=== PATIENT | female | born 1995 | race Native Hawaiian/Other Pacific Islander ===

== ENCOUNTER 2019-07-19 12:45 | Emergency (ER) | payer OTHER ==
[2019-07-19] MEDS ORDERED: Ondansetron 4 MG Tab.DIS PO PRN (13:13)
[2019-07-19] MEDS ORDERED: Ibuprofen 800 MG Tab PO ONE (13:14)
[2019-07-19] MEDS ORDERED: Acetaminophen 500 MG Tab PO ONE (13:14)
--- NOTE | 2019-07-19 13:53 | EDM.PDOC ---
ED HPI GENERAL MEDICAL PROBLEM - General Chief Complaint: Fever Stated Complaint: CHILL,FEVER Time Seen by Provider: 07/19/19 12:55 Source of Information: Reports: Patient, Family History Limitations: Reports: No Limitations - History of Present Illness INITIAL COMMENTS - FREE TEXT/NARRATIVE: Patient presented to the ED because of cough and cold,fever,chills and body malaise for 2 days. She also c/o N/V but no diarrhea. - Related Data Allergies Allergy/AdvReac Type Severity Reaction Status Date / Time No Known Allergies Allergy Verified 07/19/19 13:07 Home Meds: Home Meds Ibuprofen [Motrin] 800 mg PO TID PRN #30 tab 07/19/19 [Rx] hydrOXYzine pamoate [Vistaril] 50 mg PO Q6H PRN #15 cap 07/19/19 [Rx] Past Medical History - Past Health History Medical/Surgical History: Denies Medical/Surgical History Social & Family History - Family History Family Medical History: Noncontributory - Tobacco Use Smoking Status *Q: Current Every Day Smoker Years of Tobacco use: 5 Packs/Tins Daily: 0.5 Used Tobacco, but Quit: No - Recreational Drug Use Recreational Drug Use: No ED ROS GENERAL - Review of Systems Review Of Systems: See Below Constitutional: Reports: No Symptoms HEENT: Reports: Rhinitis Respiratory: Reports: Cough. Denies: Sputum Cardiovascular: Reports: No Symptoms Endocrine: Reports: No Symptoms GI/Abdominal: Reports: Nausea, Vomiting. Denies: Abdominal Pain, Diarrhea : Reports: No Symptoms Musculoskeletal: Reports: No Symptoms, Muscle Pain Skin: Reports: No Symptoms Neurological: Reports: No Symptoms Psychiatric: Reports: No Symptoms ED EXAM, GENERAL - Physical Exam Exam: See Below Exam Limited By: No Limitations General Appearance: Alert, No Apparent Distress Eye Exam: Bilateral Eye: PERRL Ears: Normal External Exam, Normal Canal, Hearing Grossly Normal Nose: Normal Inspection, Normal Mucosa, No Blood, Nasal Tenderness Throat/Mouth: Normal Inspection, Normal Lips, Normal Teeth, Normal Gums Head: Atraumatic, Normocephalic Neck: Normal Inspection, Supple, Non-Tender, Full Range of Motion Respiratory/Chest: No Respiratory Distress, Lungs Clear, Normal Breath Sounds, Chest Non-Tender, Decreased Breath Sounds Cardiovascular: Normal Peripheral Pulses, Regular Rate, Rhythm, No Edema, No Gallop, No JVD, No Murmur, No Rub Back Exam: Normal Inspection, Full Range of Motion Extremities: Normal Inspection, Normal Range of Motion, Non-Tender Neurological: Alert, Oriented, CN II-XII Intact, Normal Cognition, Normal Gait, Normal Reflexes, No Motor/Sensory Deficits Psychiatric: Normal Affect, Normal Mood Skin Exam: Warm Course - Vital Signs Text/Narrative:: influenza A pos zofran ODT 4 mg po x1 ibuprofen 800 mg with tylenol 1000 mg po x1 Last Recorded V/S: Last Vital Signs Temp 37.1 C 07/19/19 13:43 Pulse 106 H 07/19/19 12:55 Resp 20 07/19/19 12:55 BP 104/88 07/19/19 12:55 Pulse Ox 100 07/19/19 12:55 - Orders/Labs/Meds Meds: Medications Discontinued Medications Generic Name Dose Route Start Last Admin Trade Name Freq PRN Reason Stop Dose Admin Acetaminophen 1,000 mg 07/19/19 13:14 07/19/19 13:43 Tylenol Extra Strength PO 07/19/19 13:15 1,000 mg ONETIME ONE Administration Ibuprofen 800 mg 07/19/19 13:14 07/19/19 13:43 Motrin PO 07/19/19 13:15 800 mg ONETIME ONE Administration Ondansetron HCl 4 mg 07/19/19 13:13 07/19/19 13:46 Zofran Odt PO 4 mg ONETIME PRN Administration Nausea Departure - Departure Time of Disposition: 13:50 Disposition: Home, Self-Care 01 Condition: Good Clinical Impression: Influenza A - Discharge Information Prescriptions: hydrOXYzine pamoate [Vistaril] 50 mg PO Q6H PRN #15 cap PRN Reason: nausea/sleep Ibuprofen [Motrin] 800 mg PO TID PRN #30 tab PRN Reason: Pain/Fever Instructions: Influenza, Adult, [id number] Referrals: PCP,None [Primary Care Provider] - Forms: ED Department Discharge Additional Instructions: please read discharge instructions on influenza vistaril 50 mg every 6 hours as needed for nausea and sleep ibuprofen 800 mg with tylenol 1000 mg every 8 hours as needed for pain/fever follow up as needed Sepsis Event Note - Evaluation Sepsis Screening Result: No Definite Risk - Focused Exam Vital Signs: Vital Signs Temp Temp Pulse Resp BP Pulse Ox 07/19/19 13:43 37.1 C 07/19/19 12:55 37.1 C 106 H 20 104/88 100 Date Exam was Performed: 07/19/19 Time Exam was Performed: 15:44
== END 2019-07-19 14:24 | disposition home or self-care (01) ==
LOC: FB.ED 12:45
DX: J10.1 Influenza due to other identified influenza virus with other respiratory manifestations (principal); F17.210 Nicotine dependence, cigarettes, uncomplicated
CPT/HCPCS: 87804; 87804-59; 99283; A9270-GY

== ENCOUNTER 2019-07-23 21:14 | Emergency (ER) | payer OTHER ==
[2019-07-23] MEDS ORDERED: Codeine/guaiFENesin 100mg-10 MG/5 ML Soln 118 ML Bottle PO ONE (21:15)
--- NOTE | 2019-07-23 21:32 | EDM.PDOC ---
ED HPI GENERAL MEDICAL PROBLEM - General Chief Complaint: ENT Problem Stated Complaint: FEVER Time Seen by Provider: 07/23/19 21:20 Source of Information: Reports: Patient, Old Records History Limitations: Reports: No Limitations - History of Present Illness INITIAL COMMENTS - FREE TEXT/NARRATIVE: 24 yo female was here a few days ago and was dx'd with influenza A. She returns tonight with R ear pain with drainage. Still has some nausea, is not out of her Zofran. Still has a dry cough. Still running a fever at times. Onset: Today (of ear pain), Gradual Onset Date: 07/23/19 Duration: Day(s): (1, ear pain), Constant Location: Reports: Face (R ear) Quality: Reports: Ache Severity: Moderate Improves with: Reports: None Worsens with: Reports: None Context: Reports: Other (See HPI) Associated Symptoms: Reports: Cough, Fever/Chills, Malaise, Nausea/Vomiting. 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 (see below) (none) - Related Data Allergies Allergy/AdvReac Type Severity Reaction Status Date / Time No Known Allergies Allergy Verified 07/19/19 13:07 Home Meds: Home Meds Ibuprofen [Motrin] 800 mg PO TID PRN #30 tab 07/19/19 [Rx] hydrOXYzine pamoate [Vistaril] 50 mg PO Q6H PRN #15 cap 07/19/19 [Rx] Sulfamethoxazole/Trimethoprim [Bactrim Ds Tablet] 1 each PO Q12H #19 tablet [Rx] Past Medical History - Past Health History Medical/Surgical History: Denies Medical/Surgical History Social & Family History - Family History Family Medical History: Noncontributory ED ROS ENT - Review of Systems Review Of Systems: See Below Constitutional: Reports: Fever, Chills, Malaise HEENT: Reports: Ear Pain (Right). Denies: Throat Pain Respiratory: Reports: Cough. Denies: Shortness of Breath, Wheezing, Sputum, Hemoptysis Cardiovascular: Reports: No Symptoms Endocrine: Reports: No Symptoms GI/Abdominal: Reports: Nausea. Denies: Abdominal Pain, Black Stool, Bloody Stool, Constipation, Diarrhea, Hematemesis, Hematochezia, Melena, Vomiting : Reports: No Symptoms Musculoskeletal: Reports: No Symptoms Skin: Reports: No Symptoms Neurological: Reports: No Symptoms ED EXAM, ENT - Physical Exam Exam: See Below Exam Limited By: No Limitations General Appearance: Alert, WD/WN, No Apparent Distress Eye Exam: Bilateral Eye: Normal Inspection Ears: Normal External Exam, Normal Canal, Hearing Grossly Normal, Canal Discharge (right), TM Perforation (right). No: Auricular Tenderness, Canal Blood, TM Obscured by Cerumen, Cerumen Impaction Nose: Normal Inspection Mouth/Throat: Normal Inspection, Normal Lips, Normal Oropharynx Head: Atraumatic, Normocephalic Neck: Normal Inspection Respiratory/Chest: No Respiratory Distress, Lungs Clear, Normal Breath Sounds, No Accessory Muscle Use GI/Abdominal: Normal Bowel Sounds, Soft, Non-Tender, No Distention Back: Normal Inspection Extremities: Normal Inspection Neurological: Alert, Oriented, CN II-XII Intact, Normal Cognition, No Motor/ Sensory Deficits Psychiatric: Normal Affect, Normal Mood Skin: Warm, Dry, Intact, Normal Color, No Rash Course - Orders/Labs/Meds Meds: Medications Discontinued Medications Generic Name Dose Route Start Last Admin Trade Name Shelley PRN Reason Stop Dose Admin Acetaminophen 1,000 mg 07/23/19 21:45 Tylenol Extra Strength PO 07/23/19 21:46 ONETIME ONE Trimethoprim/Sulfamethoxazole 1 tab 07/23/19 21:33 Septra Ds PO 07/23/19 21:34 ONETIME ONE Departure - Departure Time of Disposition: 22:05 Disposition: Home, Self-Care 01 Condition: Fair Clinical Impression: Acute right otitis media, Perforation of tympanic membrane due to otitis media - Discharge Information *PRESCRIPTION DRUG MONITORING PROGRAM REVIEWED*: No *COPY OF PRESCRIPTION DRUG MONITORING REPORT IN PATIENT ROBERT: No Prescriptions: Sulfamethoxazole/Trimethoprim [Bactrim Ds Tablet] 1 each PO Q12H #19 tablet Instructions: Otitis Media, Adult, [id number] Referrals: PCP,None [Primary Care Provider] - Forms: ED Department Discharge, ED Return to Work/School Form Additional Instructions: Take Bactrim DS every 12 hrs until gone. Use Robitussin AC 1-2 tsp every 4 hrs for cough as needed. Take acetaminophen and/or ibuprofen as needed for pain and fever control. Keep water out of the right ear for the next few weeks until your ear drum is healed, you should notice restored hearing when it is healed. Recheck in the clinic with your provider in 10 days, sooner if worse. Sepsis Event Note - Focused Exam Date Exam was Performed: 07/23/19 Time Exam was Performed: 21:56
[2019-07-23] MEDS ORDERED: Sulfamethoxazole/Trimethoprim 800-160 MG Tab PO ONE (21:33)
[2019-07-23] MEDS ORDERED: Acetaminophen 500 MG Tab PO ONE (21:45)
== END 2019-07-23 22:01 | disposition home or self-care (01) ==
LOC: FB.ED 21:14
DX: H66.91 Otitis media, unspecified, right ear (principal); H72.91 Unspecified perforation of tympanic membrane, right ear
CPT/HCPCS: 99283; A9270

== ENCOUNTER 2021-01-15 18:44 | Emergency (ER) | payer OTHER ==
[2021-01-15] MEDS ORDERED: Amoxicillin/Clavulanate K 500-125 MG Tab PO ONE (18:45)
[2021-01-15] MEDS ORDERED: Ketorolac 30 MG/ML SDV IM ONE (19:41)
[2021-01-15] MEDS ORDERED: hydrOXYzine HCl 50 MG/ML SDV IM ONE (19:41)
--- NOTE | 2021-01-15 19:50 | EDM.PDOC ---
ED HPI GENERAL MEDICAL PROBLEM - General Chief Complaint: General Stated Complaint: NOT FEELING WELL Time Seen by Provider: 01/15/21 19:47 Source of Information: Reports: Patient History Limitations: Reports: No Limitations - History of Present Illness INITIAL COMMENTS - FREE TEXT/NARRATIVE: Funmilayo complains of being weak,febrile,and having sore throat. Symptoms started insidiously last Wednesday. Progressively getting worse. Also complains headache,vomiting.She is not immunized against COVID-19. Throat Pain Score (Numeric/FACES): 7 - Related Data Allergies Allergy/AdvReac Type Severity Reaction Status Date / Time No Known Allergies Allergy Verified 07/19/19 13:07 Home Meds: Home Meds hydrOXYzine pamoate [Vistaril] 50 mg PO Q6H PRN #15 cap 07/19/19 [Rx] Sulfamethoxazole/Trimethoprim [Bactrim Ds Tablet] 1 each PO Q12H #19 tablet 07/23/19 [Rx] Past Medical History - Past Health History Medical/Surgical History: Denies Medical/Surgical History Social & Family History - Family History Family Medical History: No Pertinent Family History - Tobacco Use Tobacco Use Status *Q: Never Tobacco User Second Hand Smoke Exposure: No - Caffeine Use Caffeine Use: Reports: Soda - Recreational Drug Use Recreational Drug Use: No ED ROS GENERAL - Review of Systems Review Of Systems: Comprehensive ROS is negative, except as noted in HPI. ED EXAM, GENERAL - Physical Exam Exam: See Below Exam Limited By: No Limitations General Appearance: Alert, Lethargic Ear Exam: Bilateral Ear: Auricle Normal, Canal Normal, TM normal Nose: Normal Inspection Throat/Mouth: Inflammation. No: Normal Oropharynx Head: Atraumatic Neck: Supple, Non-Tender, Lymphadenopathy (R), Lymphadenopathy (L) Respiratory/Chest: No Respiratory Distress, Lungs Clear Cardiovascular: Normal Peripheral Pulses, Regular Rate, Rhythm Course - Vital Signs Last Recorded V/S: Last Vital Signs Temp 99.2 F 01/15/21 18:55 Pulse 107 H 01/15/21 18:55 Resp 16 01/15/21 18:55 BP 107/69 01/15/21 18:55 Pulse Ox 97 01/15/21 18:55 - Orders/Labs/Meds Orders: Active Orders 24 hr Category Date Time Status CBC WITH AUTO DIFF [HEME] Stat Lab 01/15/21 19:28 Results Labs: Laboratory Tests 01/15/21 01/15/21 01/15/21 Range/Units 19:15 19:25 19:28 WBC 20.8 H (3.0-10.3) x10-3/uL RBC 4.45 (3.60-5.20) x10(6)uL Hgb 12.4 (11.4-15.5) g/dL Hct 37.4 (34.2-48.2) % MCV 84.0 (76.7-100.5) fL MCH 27.9 (23.9-33.9) pg MCHC 33.2 (31.9-34.8) g/dL RDW 13.3 (12.3-16.5) % Plt Count 307 (151-488) x10(3)uL MPV 8.2 (7.1-12.4) fL Add Manual Diff Yes Sodium (135-145) mmol/L Potassium (3.5-5.3) mmol/L Chloride (100-110) mmol/L Carbon Dioxide (21-32) mmol/L BUN (7-18) mg/dL Creatinine (0.55-1.02) mg/dL Est Cr Clr Drug Dosing mL/min Estimated GFR (MDRD) (>60) BUN/Creatinine Ratio (9-20) Glucose (80-116) mg/dL Calcium (8.6-10.2) mg/dL Total Bilirubin (0.1-1.3) mg/dL AST (5-25) IU/L ALT (12-36) U/L Alkaline Phosphatase (56-112) IU/L Total Protein (6.0-8.0) g/dL Albumin (3.5-5.2) g/dL Globulin g/dL Albumin/Globulin Ratio SARS-CoV-2 RNA (BRYANNA) Negative (NEGATIVE) Group A Strep (PCR) Detected H (NOT DETECT) 01/15/21 Range/Units 19:28 WBC (3.0-10.3) x10-3/uL RBC (3.60-5.20) x10(6)uL Hgb (11.4-15.5) g/dL Hct (34.2-48.2) % MCV (76.7-100.5) fL MCH (23.9-33.9) pg MCHC (31.9-34.8) g/dL RDW (12.3-16.5) % Plt Count (151-488) x10(3)uL MPV (7.1-12.4) fL Add Manual Diff Sodium 143 (135-145) mmol/L Potassium 3.7 (3.5-5.3) mmol/L Chloride 104 (100-110) mmol/L Carbon Dioxide 25 (21-32) mmol/L BUN 15 (7-18) mg/dL Creatinine 0.8 (0.55-1.02) mg/dL Est Cr Clr Drug Dosing 105.45 mL/min Estimated GFR (MDRD) > 60 (>60) BUN/Creatinine Ratio 18.8 (9-20) Glucose 93 (80-116) mg/dL Calcium 8.4 L (8.6-10.2) mg/dL Total Bilirubin 0.6 (0.1-1.3) mg/dL AST 18 (5-25) IU/L ALT 27 (12-36) U/L Alkaline Phosphatase 70 (56-112) IU/L Total Protein 8.1 H (6.0-8.0) g/dL Albumin 3.7 (3.5-5.2) g/dL Globulin 4.4 g/dL Albumin/Globulin Ratio 0.8 SARS-CoV-2 RNA (BRYANNA) (NEGATIVE) Group A Strep (PCR) (NOT DETECT) Meds: Medications Discontinued Medications Generic Name Dose Route Start Last Admin Trade Name Freq PRN Reason Stop Dose Admin Hydroxyzine HCl 50 mg 01/15/21 19:41 01/15/21 19:49 Hydroxyzine Hcl 50 Mg/Ml Sdv IM 01/15/21 19:42 50 mg ONETIME ONE Administration Ketorolac Tromethamine 30 mg 01/15/21 19:41 01/15/21 19:49 Ketorolac 30 Mg/Ml Sdv IM 01/15/21 19:42 30 mg ONETIME ONE Administration Departure - Departure Time of Disposition: 20:06 Disposition: Home, Self-Care 01 Condition: Good Clinical Impression: Strep pharyngitis - Discharge Information Instructions: Strep Throat, Adult, [id number] Referrals: Carline Salazar NP [Primary Care Provider] - 2 Days Forms: ED Department Discharge Sepsis Event Note (ED) - Evaluation Sepsis Screening Result: No Definite Risk - Focused Exam Vital Signs: Vital Signs Temp Pulse Resp BP Pulse Ox 01/15/21 18:55 99.2 F 107 H 16 107/69 97 - Problem List & Annotations (1) Strep pharyngitis SNOMED Code(s): 38652291 Code(s): J02.0 - STREPTOCOCCAL PHARYNGITIS Status: Acute Current Visit: Yes - Problem List Review Problem List Initiated/Reviewed/Updated: Yes - My Orders Last 24 Hours: My Active Orders 01/15/21 19:28 CBC WITH AUTO DIFF [HEME] Stat - Assessment/Plan Last 24 Hours: My Active Orders 01/15/21 19:28 CBC WITH AUTO DIFF [HEME] Stat Plan: Amoxicillin 500 mg po tid # 1 week
== END 2021-01-15 20:21 | disposition home or self-care (01) ==
LOC: FB.ED 18:44
DX: J02.0 Streptococcal pharyngitis (principal); Z20.822 Contact with and (suspected) exposure to COVID-19
CPT/HCPCS: 36415; 80053; 85025; 87635; 87651; 96372; 99283; A9270; J1885; J3410; U0002

== ENCOUNTER 2021-12-09 20:05 | Emergency (ER) | payer BC, OTHER ==
[2021-12-09] MEDS ORDERED: Sodium Chloride 0.9% 10 ML Syringe FLUSH PRN (20:39)
[2021-12-09] MEDS ORDERED: Ondansetron 4 MG/2 ML SDV IVPUSH ONE (20:39)
[2021-12-09] MEDS ORDERED: Sodium Chloride 0.9% 1,000 ML IV ONE ×2 (20:39→22:24)
[2021-12-09 20:58] LABS: ESTIMATED GFR 105 mL/min (>60)
[2021-12-09] MEDS ORDERED: Promethazine 25 MG in Sodium Chloride 0.9% 50 ML IV ONE (22:25)
== END 2021-12-10 00:40 | disposition home or self-care (01) ==
LOC: FB.ED 20:05
DX: N93.8 Other specified abnormal uterine and vaginal bleeding (principal); R11.10 Vomiting, unspecified; E86.0 Dehydration; F17.210 Nicotine dependence, cigarettes, uncomplicated; E66.9 Obesity, unspecified; Z68.35 Body mass index [BMI] 35.0-35.9, adult; Z86.16 Personal history of COVID-19
CPT/HCPCS: 80053; 81001; 81025; 83735; 85025; 86140; 96361; 96374; 96375; 99282; 99284-25; J2405; J2550; J3490; J7030

== ENCOUNTER 2023-02-11 02:55 | Emergency (ER) | payer BC, OTHER ==
[2023-02-11] MEDS ORDERED: Nitrofurantoin Monohydrate/Macrocrystalline 100 MG Cap PO ONE (02:56)
[2023-02-11 03:16] LABS: BILIRUBIN,URINE NEGATIVE (NEGATIVE); GLUCOSE,URINE NORMAL (NORMAL); KETONES,URINE NEGATIVE (NEGATIVE); LEUKOCYTE ESTERASE,URINE MODERATE (NEGATIVE); NITRITE,URINE POSITIVE (NEGATIVE); OCCULT BLOOD,URINE LARGE (NEGATIVE); PH,URINE 6.5 (5.0-6.5); PROTEIN,URINE NEGATIVE (NEGATIVE); UROBILINOGEN,URINE NORMAL (NEGATIVE)
[2023-02-11 03:21] VITALS: BP 123/83; PULSE 87
[2023-02-11 03:23] LABS: APPEARANCE,URINE CLOUDY (CLEAR); COLOR,URINE YELLOW (YELLOW)
[2023-02-11 03:24] LABS: AMORPHOUS SEDIMENT,URINE FEW; BACTERIA,URINE MODERATE (NS); SQUAMOUS EPITHELIAL CELLS,UR FEW (NS,R,O)
== END 2023-02-11 03:42 | disposition home or self-care (01) ==
LOC: FB.ED 02:55
DX: R10.9 Unspecified abdominal pain (principal); E66.9 Obesity, unspecified; Z86.16 Personal history of COVID-19; Z68.36 Body mass index [BMI] 36.0-36.9, adult
CPT/HCPCS: 81001; 81025; 87086; 99283; 99284; A9270-GY

== ENCOUNTER 2023-03-05 17:44 | Emergency (ER) | payer OTHER ==
[2023-03-05] MEDS ORDERED: Sulfamethoxazole/Trimethoprim 800-160 MG Tab PO ONE (17:45)
[2023-03-05 18:22] LABS: BILIRUBIN,URINE NEGATIVE (NEGATIVE); GLUCOSE,URINE NORMAL (NORMAL); KETONES,URINE NEGATIVE (NEGATIVE); LEUKOCYTE ESTERASE,URINE LARGE (NEGATIVE); NITRITE,URINE NEGATIVE (NEGATIVE); OCCULT BLOOD,URINE LARGE (NEGATIVE); PROTEIN,URINE NEGATIVE (NEGATIVE); UROBILINOGEN,URINE NORMAL (NEGATIVE)
[2023-03-05 18:23] LABS: APPEARANCE,URINE SLIGHTLY CLOUDY (CLEAR); BACTERIA,URINE MANY (NS); COLOR,URINE YELLOW (YELLOW); RBC,URINE >100 (0-5); SQUAMOUS EPITHELIAL CELLS,UR FEW (NS,R,O); WBC,URINE >100 (0-5)
== END 2023-03-05 18:50 | disposition home or self-care (01) ==
LOC: FB.ED 17:44
DX: N30.00 Acute cystitis without hematuria (principal); E66.9 Obesity, unspecified; Z68.30 Body mass index [BMI] 30.0-30.9, adult; Z86.16 Personal history of COVID-19
CPT/HCPCS: 81001; 87086; 87088; 87186; 99283; A9270-GY

== ENCOUNTER 2023-07-08 22:36 | Emergency (ER) | payer OTHER ==
[2023-07-08] MEDS ORDERED: Cephalexin 500 MG Cap PO ONE (23:15)
== END 2023-07-08 23:26 | disposition home or self-care (01) ==
LOC: FB.ED 22:36
DX: L03.111 Cellulitis of right axilla (principal); E66.9 Obesity, unspecified; Z86.16 Personal history of COVID-19
CPT/HCPCS: 99283; A9270-GY

== ENCOUNTER 2024-03-21 22:23 | Emergency (ER) | payer OTHER ==
[2024-03-21] MEDS ORDERED: Ondansetron 4 MG Tab.DIS PO ONE (22:24)
[2024-03-21 23:03] LABS: BASOPHILS PERCENT AUTO 0.3 % (0.2-1.5); EOSINOPHILS ABSOLUTE AUTO 0.2 x10-3/uL (0.0-0.8); EOSINOPHILS PERCENT AUTO 1.8 % (0.6-8.1); HEMATOCRIT 37.3 % (34.2-48.2); HEMOGLOBIN 12.3 g/dL (11.4-15.5); LYMPHOCYTES ABSOLUTE AUTO 2.2 x10-3/uL (1.0-4.4); LYMPHOCYTES PERCENT AUTO 23.1 % (18.4-52.1); MEAN CORPUSCULAR HEMOGLOBIN 27.5 pg (23.9-33.9); MEAN CORPUSCULAR VOLUME 83.3 fL (76.7-100.5); MEAN PLATELET VOLUME 8.8 fL (7.1-12.4); MONOCYTES ABSOLUTE AUTO 0.6 x10-3/uL (0.3-1.0); MONOCYTES PERCENT AUTO 6.4 % (4.4-15.7); NEUTROPHILS ABSOLUTE AUTO 6.5 x10-3/uL (1.5-6.3); NEUTROPHILS PERCENT AUTO 68.4 % (30.8-76.2); PLATELET COUNT,PLT 330 x10(3)uL (151-488); RED BLOOD CELL COUNT 4.48 x10(6)uL (3.60-5.20); RED CELL DISTRIBUTION WIDTH 13.4 % (12.3-16.5); WHITE BLOOD CELL COUNT,WBC 9.5 x10-3/uL (3.0-10.3)
[2024-03-21 23:06] LABS: BLOOD UREA NITROGEN,BUN 15 mg/dL (7-18); BUN/CREATININE RATIO 18.8 (9-20); CALCIUM 8.8 mg/dL (8.6-10.2); CARBON DIOXIDE,CO2 30 mmol/L (21-32); CHLORIDE,CL 103 mmol/L (100-110); CREATININE 0.8 mg/dL (0.55-1.02); EST CRCL DRUG DOSING (CG) 102.72 mL/min; ESTIMATED GFR 104 mL/min (>60); GLUCOSE RANDOM 68 mg/dL (80-116); POTASSIUM,K 3.6 mmol/L (3.5-5.3); SODIUM,NA 140 mmol/L (135-145)
[2024-03-21 23:11] LABS: A/G RATIO 0.9; ALANINE AMINOTRANSFERASE,ALT 10 U/L (12-36); ALBUMIN 3.8 g/dL (3.5-5.2); ALKALINE PHOSPHATASE 56 IU/L (56-112); ASPARTATE AMNIOTRANSFERASE,AST 10 IU/L (5-25); BILIRUBIN TOTAL 0.7 mg/dL (0.1-1.3); PROTEIN TOTAL,TP 8.1 g/dL (6.0-8.0)
== END 2024-03-21 23:30 | disposition home or self-care (01) ==
LOC: FB.ED 22:23
DX: R11.2 Nausea with vomiting, unspecified (principal); R10.13 Epigastric pain; E66.9 Obesity, unspecified; Z86.16 Personal history of COVID-19; Z79.899 Other long term (current) drug therapy; Z68.35 Body mass index [BMI] 35.0-35.9, adult
CPT/HCPCS: 36415; 80053; 84702; 85025; 99284; Q0162

== ENCOUNTER 2024-08-25 16:48 | Emergency (ER) | payer OTHER ==
[2024-08-25] MEDS ORDERED: Sodium Chloride 0.9% 10 ML Syringe FLUSH PRN (17:23)
[2024-08-25 17:53] LABS: BLOOD UREA NITROGEN,BUN 19 mg/dL (7-18); BUN/CREATININE RATIO 21.1 (9-20); CALCIUM 9.2 mg/dL (8.6-10.2); CARBON DIOXIDE,CO2 26 mmol/L (21-32); CHLORIDE,CL 102 mmol/L (100-110); CREATININE 0.9 mg/dL (0.55-1.02); ESTIMATED GFR 89 mL/min (>60); GLUCOSE RANDOM 81 mg/dL (80-116); SODIUM,NA 137 mmol/L (135-145)
[2024-08-25 17:54] LABS: LIPASE 43 U/L (16-77)
[2024-08-25 17:56] LABS: BASOPHILS PERCENT AUTO 0.3 % (0.2-1.5); EOSINOPHILS ABSOLUTE AUTO 0.4 x10-3/uL (0.0-0.8); EOSINOPHILS PERCENT AUTO 3.2 % (0.6-8.1); HEMATOCRIT 35.5 % (34.2-48.2); LYMPHOCYTES ABSOLUTE AUTO 2.2 x10-3/uL (1.0-4.4); LYMPHOCYTES PERCENT AUTO 18.6 % (18.4-52.1); MEAN CORPUSCULAR HEMOGLOBIN 28.1 pg (23.9-33.9); MEAN CORPUSCULAR HGB CONC 33.9 g/dL (31.9-34.8); MEAN CORPUSCULAR VOLUME 83.1 fL (76.7-100.5); MEAN PLATELET VOLUME 8.5 fL (7.1-12.4); MONOCYTES ABSOLUTE AUTO 0.7 x10-3/uL (0.3-1.0); MONOCYTES PERCENT AUTO 5.7 % (4.4-15.7); NEUTROPHILS ABSOLUTE AUTO 8.6 x10-3/uL (1.5-6.3); NEUTROPHILS PERCENT AUTO 72.2 % (30.8-76.2); PLATELET COUNT,PLT 316 x10(3)uL (151-488); RED BLOOD CELL COUNT 4.27 x10(6)uL (3.60-5.20); RED CELL DISTRIBUTION WIDTH 14.9 % (12.3-16.5); WHITE BLOOD CELL COUNT,WBC 11.9 x10-3/uL (3.0-10.3)
[2024-08-25 17:58] LABS: A/G RATIO 0.9; ALANINE AMINOTRANSFERASE,ALT 21 U/L (12-36); ALBUMIN 3.7 g/dL (3.5-5.2); ALKALINE PHOSPHATASE 46 IU/L (56-112); ASPARTATE AMNIOTRANSFERASE,AST 16 IU/L (5-25); BILIRUBIN TOTAL 0.4 mg/dL (0.1-1.3); C-REACTIVE PROTEIN < 0.50 mg/dL (<0.50); PROTEIN TOTAL,TP 7.9 g/dL (6.0-8.0)
[2024-08-25] MEDS: Iopamidol 755 Mg/ML 100 ML Bottle IV SCH (17:58)
[2024-08-25] MEDS: Pantoprazole 40 MG Vial IVPUSH ONE (17:58)
[2024-08-25 19:32] LABS: BILIRUBIN,URINE NEGATIVE (NEGATIVE); GLUCOSE,URINE NORMAL (NORMAL); KETONES,URINE NEGATIVE (NEGATIVE); LEUKOCYTE ESTERASE,URINE NEGATIVE (NEGATIVE); NITRITE,URINE NEGATIVE (NEGATIVE); OCCULT BLOOD,URINE LARGE (NEGATIVE); PROTEIN,URINE NEGATIVE (NEGATIVE); UROBILINOGEN,URINE NORMAL (NEGATIVE)
[2024-08-25] MEDS: Ketorolac 30 MG/ML SDV IVPUSH ONE (19:35)
[2024-08-25] MEDS: Simethicone 80 MG Tab.Chew PO STA (19:36)
[2024-08-25 19:37] LABS: APPEARANCE,URINE CLEAR (CLEAR); COLOR,URINE YELLOW (YELLOW); RBC,URINE 20-30 (0-5); SQUAMOUS EPITHELIAL CELLS,UR FEW (NS,R,O); WBC,URINE 0-5 (0-5)
[2024-08-25 19:38] LABS: BACTERIA,URINE FEW (NS)
== END 2024-08-25 20:35 | disposition home or self-care (01) ==
LOC: FB.ED 16:48
DX: K59.00 Constipation, unspecified (principal); K21.9 Gastro-esophageal reflux disease without esophagitis; E66.9 Obesity, unspecified; F17.290 Nicotine dependence, other tobacco product, uncomplicated; Z68.33 Body mass index [BMI] 33.0-33.9, adult; Z87.11 Personal history of peptic ulcer disease; Z86.16 Personal history of COVID-19; Z86.19 Personal history of other infectious and parasitic diseases; Z79.899 Other long term (current) drug therapy
CPT/HCPCS: 36415; 74177; 80053; 81001; 83690; 85025; 86140; 96374; 96375; 99284-25; A9270-GY; J1885; J2470; Q9967

== ENCOUNTER 2025-06-25 23:15 | Emergency (ER) | payer BC ==
[2025-06-26] MEDS: Ketorolac 30 MG/ML SDV IVPUSH ONE (00:09)
[2025-06-26 00:12] LABS: BASOPHILS ABSOLUTE AUTO 0.0 x10-3/uL (0.0-0.1); BASOPHILS PERCENT AUTO 0.2 % (0.2-1.5); EOSINOPHILS ABSOLUTE AUTO 0.3 x10-3/uL (0.0-0.8); EOSINOPHILS PERCENT AUTO 3.6 % (0.6-8.1); LYMPHOCYTES ABSOLUTE AUTO 1.6 x10-3/uL (1.0-4.4); LYMPHOCYTES PERCENT AUTO 19.1 % (18.4-52.1); MEAN PLATELET VOLUME 8.5 fL (7.1-12.4); MONOCYTES ABSOLUTE AUTO 0.6 x10-3/uL (0.3-1.0); MONOCYTES PERCENT AUTO 7.5 % (4.4-15.7); NEUTROPHILS ABSOLUTE AUTO 6.0 x10-3/uL (1.5-6.3); NEUTROPHILS PERCENT AUTO 69.6 % (30.8-76.2); PLATELET COUNT,PLT 292 x10(3)uL (151-488); RED BLOOD CELL COUNT 4.37 x10(6)uL (3.60-5.20); RED CELL DISTRIBUTION WIDTH 14.2 % (12.3-16.5); WHITE BLOOD CELL COUNT,WBC 8.6 x10-3/uL (3.0-10.3)
[2025-06-26 00:14] LABS: BLOOD UREA NITROGEN,BUN 17 mg/dL (7-18); CARBON DIOXIDE,CO2 27 mmol/L (21-32); CHLORIDE,CL 104 mmol/L (100-110); CREATININE 0.7 mg/dL (0.55-1.02); EST CRCL DRUG DOSING (CG) 115.32 mL/min; ESTIMATED GFR 120 mL/min (>60); GLUCOSE RANDOM 99 mg/dL (80-116); POTASSIUM,K 3.7 mmol/L (3.5-5.3); SODIUM,NA 140 mmol/L (135-145)
[2025-06-26 00:20] LABS: A/G RATIO 0.9; ALANINE AMINOTRANSFERASE,ALT 16 U/L (12-36); ASPARTATE AMNIOTRANSFERASE,AST 16 IU/L (5-25); BILIRUBIN TOTAL 0.4 mg/dL (0.1-1.3); PROTEIN TOTAL,TP 7.3 g/dL (6.0-8.0)
[2025-06-26 00:29] LABS: GLUCOSE,URINE NORMAL (NORMAL); OCCULT BLOOD,URINE LARGE (NEGATIVE)
[2025-06-26 00:30] LABS: APPEARANCE,URINE SLIGHTLY CLOUDY (CLEAR); SQUAMOUS EPITHELIAL CELLS,UR MODERATE (NS,R,O)
[2025-06-26] MEDS ORDERED: Sodium Chloride 0.9% 10 ML Syringe FLUSH PRN (01:22)
== END 2025-06-26 01:10 | disposition home or self-care (01) ==
LOC: FB.ED 23:15
DX: R11.2 Nausea with vomiting, unspecified (principal); E66.9 Obesity, unspecified; Z86.16 Personal history of COVID-19; Z79.899 Other long term (current) drug therapy; Z68.32 Body mass index [BMI] 32.0-32.9, adult
CPT/HCPCS: 36415; 80053; 81001; 81025; 85025; 86140; 96361; 96374; 96375; 99283; 99284-25; J1885; J2765; J7030